=== PATIENT | male | born 2000 | race Caucasian/White ===

== ENCOUNTER 2022-11-02 19:07 | Emergency (ER) | payer MEDICAID, OTHER ==
[~2022-11-02] VITALS: Ht 160 cm; Wt 89.2 kg
[2022-11-02] MEDS ORDERED: IBUPROFEN 800 MG TAB PO ONE (19:40)
[2022-11-02] MEDS ORDERED: AMOXICILLIN 500 MG CAP PO ONE (22:35)
[2022-11-02] MEDS ORDERED: AMOX500C PO (22:35)
[2022-11-02 22:46] VITALS: BP 136/81; TEMP 99.8; O2SAT 99
== END 2022-11-02 22:46 | disposition home or self-care (01) ==
LOC: M ED 19:07
DX: J02.0 Streptococcal pharyngitis (principal); Z79.2 Long term (current) use of antibiotics

== ENCOUNTER 2022-12-19 01:40 | Inpatient (IN) | payer OTHER ==
[2022-12-18 20:31] LABS: HEMATOCRIT 41.3 % (42.0-52.0); HEMOGLOBIN 14.1 g/dl (13.5-17.5); MEAN CORPUSCULAR HGB CONC 34.1 g/dl (32.0-36.5); MEAN CORPUSCULAR VOLUME 87.9 fl (80.0-96.0); PLATELET COUNT, AUTOMATED 223 10^3/uL (150-450); WHITE BLOOD COUNT 8.4 10^3/uL (4.0-10.0)
[2022-12-18 21:01] LABS: AMPHETAMINES LEVEL URINE NEGATIVE (NEGATIVE)
[2022-12-18 21:02] LABS: BARBITURATES URINE NEGATIVE (NEGATIVE); BENZODIAZEPINES URINE NEGATIVE (NEGATIVE); COCAINE METABOLITE URINE NEGATIVE (NEGATIVE); METHADONE URINE NEGATIVE (NEGATIVE); OPIATES URINE NEGATIVE (NEGATIVE); PHENCYCLIDINE URINE NEGATIVE (NEGATIVE)
[2022-12-18 21:05] LABS: ETHYL ALCOHOL (ETHANOL) < 0.003 % (0.000-0.010); SALICYLATE LEVEL < 3.0 MG/DL (<30)
[2022-12-18 21:06] LABS: ACETAMINOPHEN LEVEL < 2.0 UG/ML (10.0-20.0); ALBUMIN 4.2 G/DL (3.2-5.2); ALKALINE PHOSPHATASE 63 U/L (46-116); ALT/SGPT < 9 U/L (7.0-40); AST/SGOT < 8 U/L (<34); BILIRUBIN,DIRECT 0.2 MG/DL (<0.4); BILIRUBIN,TOTAL 0.9 MG/DL (0.3-1.2); BLOOD UREA NITROGEN 10 MG/DL (9-23); CARBON DIOXIDE LEVEL 23 MMOL/L (20-31); CHLORIDE LEVEL 108 MMOL/L (98-107); CREATININE FOR GFR 0.79 MG/DL (0.70-1.30); GLOMERULAR FILTRATION RATE > 60.0 (>60); GLUCOSE, FASTING 85 MG/DL (60-100); POTASSIUM SERUM 3.7 MMOL/L (3.5-5.1); SODIUM LEVEL 140 MMOL/L (136-145); TOTAL PROTEIN 7.1 G/DL (5.7-8.2)
[2022-12-18 21:08] LABS: THYROID STIMULATING HORMONE 0.984 uIU/ML (0.55-4.78)
[2022-12-18 21:12] LABS: CANNABINOIDS URINE POSITIVE (NEGATIVE)
[~2022-12-19] VITALS: Ht 160 cm; Wt 89.0 kg
[~2022-12-19 01:40] MED LIST: ACETAMINOPHEN TAB 650MG DOSE (2X325MG) PO PRN; AMOX500C PO; HOME MED LIST COMPLETE! XX SCH; IBUPROFEN 400MG TAB PO PRN; MAALOX 30 ML SUSP *UDC PO PRN; MED REC IN PROGRESS XX SCH; MOM 30ML SUSPENSION UDC PO PRN; NICOTINE 21MG/24HR 1 EA TRANSDERMAL TD PRN; OLANZapine ORAL DISINTEGRATING TAB 5MG PO PRN; diphenhydrAMINE 25MG CAP PO PRN; traZODone 50 MG TAB PO PRN
[2022-12-19 02:35] VITALS: BP 125/88; TEMP 97.1; O2SAT 100
[2022-12-19 06:21] VITALS: BP 138/82; TEMP 96.9; O2SAT 100
[2022-12-19] MEDS: ESCITALOPRAM OXALATE 5MG TABLET (LEXAPRO) PO SCH (11:04)
[2022-12-19] MEDS ORDERED: LORazepam 2 MG TAB PO PRN (16:25)
[2022-12-19 16:46] VITALS: BP 113/66
[2022-12-19] MEDS: MULTIVITAMINS/MINERALS THERAP 1 TAB PO SCH (16:52)
[2022-12-19] MEDS: FOLIC ACID 1MG TAB PO SCH (16:52)
[2022-12-19 17:08] VITALS: BP 113/63; TEMP 97.2; O2SAT 97
[2022-12-19 19:00] LABS: ALBUMIN 4.2 G/DL (3.2-5.2); ALKALINE PHOSPHATASE 63 U/L (46-116); ALT/SGPT 25 U/L (7.0-40); AST/SGOT < 8 U/L (<34); BILIRUBIN,DIRECT 0.2 MG/DL (<0.4); BILIRUBIN,TOTAL 0.9 MG/DL (0.3-1.2); TOTAL PROTEIN 7.4 G/DL (5.7-8.2)
[2022-12-19] MEDS: THIAMINE 100 MG TAB PO SCH (20:36)
[2022-12-20 06:00] VITALS: BP 120/55
[2022-12-20 06:05] VITALS: BP 120/55; TEMP 97.5; O2SAT 100
[2022-12-20] MEDS: MULTIVITAMINS/MINERALS THERAP 1 TAB PO SCH (09:08)
[2022-12-20] MEDS: FOLIC ACID 1MG TAB PO SCH (09:08)
[2022-12-20] MEDS: THIAMINE 100 MG TAB PO SCH ×2 (09:09→20:51)
[2022-12-20] MEDS: ESCITALOPRAM OXALATE 5MG TABLET (LEXAPRO) PO SCH (09:09)
[2022-12-20 17:00] VITALS: BP 139/73; TEMP 97.3; O2SAT 97
[2022-12-21 06:21] VITALS: BP 143/63; TEMP 98; O2SAT 96
[2022-12-21] MEDS: THIAMINE 100 MG TAB PO SCH ×2 (08:34→20:47)
[2022-12-21] MEDS: FOLIC ACID 1MG TAB PO SCH (08:35)
[2022-12-21] MEDS: ESCITALOPRAM OXALATE 5MG TABLET (LEXAPRO) PO SCH (08:35)
[2022-12-21] MEDS: MULTIVITAMINS/MINERALS THERAP 1 TAB PO SCH (08:35)
[2022-12-21 18:32] VITALS: BP 150/80; TEMP 96.3
[2022-12-22 06:06] VITALS: BP 111/59; TEMP 97.3; O2SAT 98
[2022-12-22] MEDS: ESCITALOPRAM OXALATE 5MG TABLET (LEXAPRO) PO SCH (08:46)
[2022-12-22] MEDS: THIAMINE 100 MG TAB PO SCH (08:46)
[2022-12-22] MEDS: FOLIC ACID 1MG TAB PO SCH (08:46)
[2022-12-22] MEDS: MULTIVITAMINS/MINERALS THERAP 1 TAB PO SCH (08:46)
[2022-12-22 17:33] VITALS: BP 135/82; TEMP 97.9; O2SAT 97
[2022-12-23 06:49] VITALS: BP 133/62; TEMP 97.6; O2SAT 97
[2022-12-23] MEDS: ESCITALOPRAM OXALATE 5MG TABLET (LEXAPRO) PO SCH (09:00)
[2022-12-23] MEDS: MULTIVITAMINS/MINERALS THERAP 1 TAB PO SCH (09:00)
[2022-12-23] MEDS: FOLIC ACID 1MG TAB PO SCH (09:00)
[2022-12-23 16:54] VITALS: BP 140/82; TEMP 93.3; O2SAT 98
[2022-12-24 06:50] VITALS: BP 120/55; TEMP 96.8; O2SAT 100
[2022-12-24] MEDS: FOLIC ACID 1MG TAB PO SCH (08:46)
[2022-12-24] MEDS: MULTIVITAMINS/MINERALS THERAP 1 TAB PO SCH (08:46)
[2022-12-24] MEDS: ESCITALOPRAM OXALATE 5MG TABLET (LEXAPRO) PO SCH (08:46)
[2022-12-24 18:22] VITALS: BP 144/73; TEMP 97.7; O2SAT 97
[2022-12-25 06:45] VITALS: BP 122/62; TEMP 98.9; O2SAT 100
[2022-12-25] MEDS ORDERED: NICO21PAT TD (08:24)
[2022-12-25] MEDS ORDERED: LEXA5TAB13 PO (08:24)
[2022-12-25] MEDS: MULTIVITAMINS/MINERALS THERAP 1 TAB PO SCH (09:03)
[2022-12-25] MEDS: ESCITALOPRAM OXALATE 5MG TABLET (LEXAPRO) PO SCH (09:03)
[2022-12-25] MEDS: FOLIC ACID 1MG TAB PO SCH (09:03)
== END 2022-12-25 09:41 | disposition home or self-care (01) | DRG 753 ==
LOC: M ED 01:40 → M ED INP 01:41 → M PSY 02:06
PROVIDERS: ADMIT Student in an Organized Health Care Education/Training Program; ATTEND Student in an Organized Health Care Education/Training Program
DX: F32.89 Other specified depressive episodes (principal); F43.10 Post-traumatic stress disorder, unspecified; F43.21 Adjustment disorder with depressed mood; F60.3 Borderline personality disorder; F10.20 Alcohol dependence, uncomplicated; R45.851 Suicidal ideations; G89.29 Other chronic pain; F17.200 Nicotine dependence, unspecified, uncomplicated